=== PATIENT | female | born 1995 | race Hispanic/Latino ===

== ENCOUNTER 2016-06-28 01:33 | Outpatient (CLI) | payer BC, MEDICAID ==
[2016-06-28 01:49] VITALS: BP 123/83
[2016-06-28] MEDS ORDERED: VISTARIL PO ONE (03:01)
== END 2016-06-28 03:11 | disposition home or self-care (01) ==
LOC: TRG 01:33
PROVIDERS: ATTEND Obstetrics & Gynecology
DX: O47.1 False labor at or after 37 completed weeks of gestation (principal); Z3A.37 37 weeks gestation of pregnancy
CPT/HCPCS: Q0177

== ENCOUNTER 2016-07-08 05:45 | Outpatient (CLI) | payer BC, MEDICAID ==
[2016-07-08 06:00] VITALS: BP 123/81
[2016-07-08] MEDS ORDERED: VISTARIL PO ONE (10:30)
== END 2016-07-08 10:18 | disposition home or self-care (01) ==
LOC: TRG 05:45
PROVIDERS: ATTEND Obstetrics & Gynecology
DX: O26.893 Other specified pregnancy related conditions, third trimester (principal); O62.9 Abnormality of forces of labor, unspecified; M54.9 Dorsalgia, unspecified; R11.0 Nausea; Z3A.38 38 weeks gestation of pregnancy
CPT/HCPCS: 59025; Q0177

== ENCOUNTER 2016-07-10 18:06 | Inpatient (IN) | payer BC, MEDICAID ==
[2016-07-10 18:50] LABS: Basophils % (Auto) 0.2 % (0.0-1.8); Eosinophils % (Auto) 1.2 % (0.0-4.3); Hematocrit 31.6 % (30.3-42.9); Hemoglobin 10.5 gm/dl (10.1-14.3); Mean Corpuscular HGB Conc 33 % (30-34); Mean Corpuscular Hemoglobin 29 pg (28-32); Mean Corpuscular Volume 87 fl (79-97); Platelet Count 226 K/mm3 (140-440); Red Blood Count 3.62 M/mm3 (3.65-5.03); White Blood Count 17.6 K/mm3 (4.5-11.0)
[2016-07-10] MEDS ORDERED: NUBAIN IV PRN (19:22)
[2016-07-10] MEDS ORDERED: PHENERGAN PR PRN (19:22)
[2016-07-10] MEDS ORDERED: SUBLIMAZE IV PRN (19:22)
[2016-07-10] MEDS ORDERED: BRETHINE IVP PRN (19:22)
[2016-07-10] MEDS ORDERED: PHENERGAN PO PRN (19:22)
[2016-07-10] MEDS ORDERED: NARCAN 0.4 MG/1 ML IV PRN (19:22)
[2016-07-10] MEDS ORDERED: XYLOCAINE 2% INFILTRATI ONE (19:22)
[2016-07-10] MEDS ORDERED: BRETHINE SUB-Q PRN (19:22)
[2016-07-10] MEDS ORDERED: ePHEDrine SULFATE IV PRN ×2 (19:22→21:33)
[2016-07-10] MEDS ORDERED: ZOFRAN IV PRN (19:22)
[2016-07-10] MEDS ORDERED: MINERAL OIL PO PRN (19:22)
[2016-07-10] MEDS ORDERED: LACTATED RINGERS 1,000 ML IV SCH ×2 (19:25→20:00)
[2016-07-10] MEDS: STADOL IV PRN (19:32)
[2016-07-10] MEDS ORDERED: PITOCin/NS 20 UNIT/1000ML DRIP 20 UNITS/1,000 ML BAG IV SCH (20:00)
[2016-07-10] MEDS ORDERED: NARCAN 2 MG/2 ML IV PRN (21:09)
--- NOTE | 2016-07-10 21:09 | Anesthesia Consultation ---
Anesthesia Consult and Med Hx Date of service: 07/10/16 - Airway Anesthetic Teeth Evaluation: Good ROM Head & Neck: Adequate Mental/Hyoid Distance: Adequate Mallampati Class: Class II Intubation Access Assessment: Probably Good - Pulmonary Exam CTA: Yes - Cardiac Exam Cardiac Exam: RRR - Pre-Operative Health Status ASA Pre-Surgery Classification: ASA2 Proposed Anesthetic Plan: Epidural - Pulmonary Hx Asthma: No COPD: No Hx Pneumonia: No - Cardiovascular System Hx Hypertension: No - Central Nervous System Hx Seizures: No Hx Psychiatric Problems: No - Endocrine Hx Renal Disease: No Hx End Stage Renal Disease: No Hx Hypothyroidism: No Hx Hyperthyroidism: No - Hematic Hx Anemia: No Hx Sickle Cell Disease: No - Other Systems Hx Alcohol Use: No
[2016-07-10] MEDS: fentaNYL-BUPIV 2 MCG/ML-0.125% 200 MCG/100 ML BAG EPIDURAL SCH (21:48)
--- NOTE | 2016-07-10 22:03 | History and Physical Report ---
History of Present Illness Date of examination: 07/10/16 Date of admission: 07/10/16 18:39 Chief complaint: Labor History of present illness: Past History : 1 Term Births: 0 Premature Births: 0 Living Children: 0 Para: 0 Mult. Births: 0 Prev : 0 Prev. attempt? 0 Aborta: 0 Elect. 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 % Family History Risk Factors: Family History of PA in females < 65 years old: no Family History of PA in males < 55 years old: no Dietary Counseling: pn yes Past Medical History: Negative Past Medical History Past Surgical History: Appendectomy Tonsillectomy Past Medical History Surgery (Non-emergency doctor): Appendectomy Tonsillectomy Abnormal PAP: negative JIGNESH Exposure: negative Infertility: negative Uterine Anomaly: negative Uterine Surgery (not C/S): negative Other Gynecologic Problems: negative Infection History Hx of STD: none HIV Risk Eval: low risk Hepatitis B Risk Eval: low risk Personal hx. of genital herpes: no Partner hx. of genital herpes: no Rash, Viral, or Febrile illness since last LMP? no Varicella/Chicken Pox Status: Previous Disease Genetic History Congenital Heart Defect: Mom: no Dad: no Car Disease: Mom: no Dad: no Thalassemia Mom: no Dad: no Neural Tube Defect Mom: no Dad: no Down's Syndrome Mom: no Dad: no Kunal-Sachs Mom: no Dad: no Sickle Cell Disease/Trait Mom: no Dad: no Hemophilia Mom: no Dad: no Muscular Dystrophy Mom: no Dad: no Cystic Fibrosis Mom: no Dad: no [place] Chorea Mom: no Dad: no Mental Retardation Mom: no Dad: no Fragile X Mom: no Dad: no Other Genetic/Chromosomal Disorder Mom: no Dad: no Child w/other defect Mom: no Dad: no Enviromental Exposures Xray Exposure: no Medication, drug, or alcohol use since LMP: no Chemical/Other Exposure: no Exposure to Cat Liter: no Hx of Parvovirus (Fifth Disease): no Occupational Exposure to Children: none Current Allergies (reviewed today): SULFA (Critical) Past History - Obstetrical History Expected Date of Delivery: 07/19/16 Actual Gestation: 38 Week(s) 5 Day(s) : 1 Medications and Allergies Allergies Allergy/AdvReac Type Severity Reaction Status Date / Time Latex, Natural Rubber Allergy Itching Verified 07/08/16 05:48 sulfur dioxide Allergy Swelling Verified 06/28/16 01:50 Active Meds: Active Medications Butorphanol Tartrate (Stadol) 2 mg IV Q2H PRN PRN Reason: Pain , Severe (7-10) Last Admin: 07/10/16 19:32 Dose: 2 mg Fentanyl (Sublimaze) 100 mcg IV Q2H PRN PRN Reason: Labor Pain Lactated Ringer's (Lactated Ringers) 1,000 mls @ 125 mls/hr IV DIRECT JENNYFER Oxytocin/Sodium Chloride (Pitocin/Ns 20 Unit/1000ml Drip) 20 units in 1,000 mls @ 125 mls/hr IV DIRECT JENNYFER Fentanyl/Bupivacaine/Sodium Chlor (Fentanyl-Bupiv 2 Mcg/Ml-0.125%) 200 mcg in 100 mls @ 12 mls/hr EPIDURAL TITR JENNYFER PRN Reason: Protocol Last Admin: 07/10/16 21:48 Dose: 12 mls/hr Mineral Oil (Mineral Oil) 30 ml PO QHS PRN PRN Reason: Constipation Nalbuphine HCl (Nubain) 10 mg IV Q2H PRN PRN Reason: Pain, Moderate (4-6) Naloxone HCl (Narcan 0.4 Mg/1 Ml) 0.1 mg IV Q2MIN PRN PRN Reason: Res Rate </= 8 or 02 SAT < 92% Ondansetron HCl (Zofran) 4 mg IV Q8H PRN PRN Reason: Nausea And Vomiting Promethazine HCl (Phenergan) 25 mg PO Q6H PRN PRN Reason: Nausea And Vomiting Promethazine HCl (Phenergan) 25 mg MO Q6H PRN PRN Reason: N/V if unable to take po Review of Systems All systems: negative Genitourinary: contractions - Vital Signs Vital signs: Vital Signs Pulse BP 106 H 126/79 07/10/16 18:17 07/10/16 18:17 Temp Pulse Resp BP Pulse Ox 98.7 F 73 18 115/63 100 07/10/16 18:20 07/10/16 21:56 07/10/16 18:20 07/10/16 21:47 07/10/16 21:56 - Physical Exam Breasts: Positive: deferred Lungs: Positive: Normal air movement Abdomen: Positive: normal appearance Genitourinary (Female): Positive: normal external genitalia, normal perenium - Obstetrical FHR: category 1 Uterine Contraction Monitor Mode: External Cervical Dilatation: 5 (per RN) Uterine Contraction Pattern: Regular Results Result Diagrams: 07/10/16 18:30 Abnormal lab results 07/10/16 Range/Units 18:30 WBC 17.6 H (4.5-11.0) K/mm3 RBC 3.62 L (3.65-5.03) M/mm3 [place] % (Auto) 7.8 H (0.0-7.3) % [place] # 1.4 H (0.0-0.8) K/mm3 Seg Neutrophils % 75.6 H (40.0-70.0) % Seg Neutrophils # 13.3 H (1.8-7.7) K/mm3 All other labs normal. Assessment and Plan - Patient Problems (1) 38 weeks gestation of Current Visit: Yes Status: Acute (2) Active labor at term Current Visit: Yes Status: Acute
[2016-07-11] MEDS: PITOCin/NS 30 UNIT/500ML 30 UNITS/500 ML BAG IV SCH ×2 (00:21→07:46)
[2016-07-11] MEDS: STADOL IV PRN (00:30)
[2016-07-11] MEDS: fentaNYL-BUPIV 2 MCG/ML-0.125% 200 MCG/100 ML BAG EPIDURAL SCH (05:43)
--- NOTE | 2016-07-11 06:42 | Progress Note ---
Assessment and Plan - Patient Problems (1) 38 weeks gestation of Current Visit: Yes Status: Acute (2) Active labor at term Current Visit: Yes Status: Acute Plan to address problem: No cervical change after epidural,order for pitocin given for 2mu/min [id number] at 2300 however not able to be appropriately increased according to orders. Now only at 14mu/min. After verbal consent obtained, AROM, clear fluid, and IUPC placed without difficulty. Will continue pitocin. Subjective - Subjective Date of service: 07/11/16 Principal diagnosis: Prolonged active labor Interval history: Past History : 1 Term Births: 0 Premature Births: 0 Living Children: 0 Para: 0 Mult. Births: 0 Prev : 0 Prev. attempt? 0 Aborta: 0 Elect. 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 of genital herpes: no Partner hx. of genital herpes: no Rash, Viral, or Febrile illness since last LMP? no Varicella/Chicken Pox Status: Previous Disease Genetic History Congenital Heart Defect: Mom: no Dad: no Car Disease: Mom: no Dad: no Thalassemia Mom: no Dad: no Neural Tube Defect Mom: no Dad: no Down's Syndrome Mom: no Dad: no Kunal-Sachs Mom: no Dad: no Sickle Cell Disease/Trait Mom: no Dad: no Hemophilia Mom: no Dad: no Muscular Dystrophy Mom: no Dad: no Cystic Fibrosis Mom: no Dad: no [employer] Chorea Mom: no Dad: no Mental Retardation Mom: no Dad: no Fragile X Mom: no Dad: no Other Genetic/Chromosomal Disorder Mom: no Dad: no Child w/other defect Mom: no Dad: no Enviromental Exposures Xray Exposure: no Medication, drug, or alcohol use since LMP: no Chemical/Other Exposure: no Exposure to Cat Liter: no Hx of Parvovirus (Fifth Disease): no Occupational Exposure to Children: none Current Allergies (reviewed today): SULFA (Critical) Patient reports: movement normal, contractions, no loss of fluid, no vaginal bleeding Objective - Vital Signs Vital Signs: Vital Signs - 12hr 07/10/16 07/10/16 07/10/16 19:21 19:26 19:31 Pulse Rate 95 H 96 H 102 H Respiratory Rate Blood Pressure O2 Sat by Pulse 98 98 97 Oximetry 07/10/16 07/10/16 07/10/16 19:36 19:41 19:46 Pulse Rate 80 86 80 Respiratory Rate Blood Pressure O2 Sat by Pulse 97 97 97 Oximetry 07/10/16 07/10/16 07/10/16 19:51 19:56 20:01 Pulse Rate 80 79 77 Respiratory Rate Blood Pressure O2 Sat by Pulse 95 95 97 Oximetry 07/10/16 07/10/16 07/10/16 20:06 20:11 20:16 Pulse Rate 74 82 81 Respiratory Rate Blood Pressure O2 Sat by Pulse 96 97 98 Oximetry 07/10/16 07/10/16 07/10/16 20:21 20:26 20:31 Pulse Rate 86 84 78 Respiratory Rate Blood Pressure O2 Sat by Pulse 99 99 100 Oximetry 07/10/16 07/10/16 07/10/16 20:36 20:41 20:46 Pulse Rate 83 85 83 Respiratory Rate Blood Pressure O2 Sat by Pulse 99 100 100 Oximetry 07/10/16 07/10/16 07/10/16 20:51 20:56 21:01 Pulse Rate 79 89 80 Respiratory Rate Blood Pressure O2 Sat by Pulse 100 100 100 Oximetry 07/10/16 07/10/16 07/10/16 21:06 21:08 21:11 Pulse Rate 77 108 H 87 Respiratory Rate Blood Pressure O2 Sat by Pulse 100 82 L 100 Oximetry 07/10/16 07/10/16 07/10/16 21:16 21:21 21:22 Pulse Rate 73 89 92 H Respiratory Rate Blood Pressure 109/59 O2 Sat by Pulse 100 99 Oximetry 07/10/16 07/10/16 07/10/16 21:24 21:26 21:28 Pulse Rate 88 76 84 Respiratory Rate Blood Pressure 107/58 110/60 109/59 O2 Sat by Pulse 100 Oximetry 07/10/16 07/10/16 07/10/16 21:30 21:31 21:32 Pulse Rate 79 67 72 Respiratory Rate Blood Pressure 105/58 105/55 O2 Sat by Pulse 100 Oximetry 07/10/16 07/10/16 07/10/16 21:34 21:36 21:38 Pulse Rate 83 75 77 Respiratory Rate Blood Pressure 104/56 108/58 109/58 O2 Sat by Pulse 100 Oximetry 07/10/16 07/10/16 07/10/16 21:40 21:41 21:42 Pulse Rate 72 89 89 Respiratory Rate Blood Pressure 112/58 108/56 O2 Sat by Pulse 100 Oximetry 07/10/16 07/10/16 07/10/16 21:44 21:46 21:47 Pulse Rate 73 71 67 Respiratory Rate Blood Pressure 113/59 112/58 115/63 O2 Sat by Pulse 100 Oximetry 07/10/16 07/10/16 07/10/16 21:51 21:56 22:01 Pulse Rate 76 73 87 Respiratory Rate Blood Pressure O2 Sat by Pulse 100 100 100 Oximetry 07/10/16 07/10/16 07/10/16 22:04 22:06 22:11 Pulse Rate 84 80 86 Respiratory Rate Blood Pressure 127/77 O2 Sat by Pulse 100 100 Oximetry 07/10/16 07/10/16 07/10/16 22:16 22:19 22:21 Pulse Rate 88 92 H 97 H Respiratory Rate Blood Pressure 132/80 O2 Sat by Pulse 100 100 Oximetry 07/10/16 07/10/16 07/10/16 22:26 22:32 22:34 Pulse Rate 83 77 78 Respiratory Rate Blood Pressure 125/77 O2 Sat by Pulse 100 100 Oximetry 07/10/16 07/10/16 07/10/16 22:37 22:41 22:48 Pulse Rate 78 80 82 Respiratory Rate Blood Pressure 130/75 O2 Sat by Pulse 100 100 Oximetry 07/10/16 07/10/16 07/10/16 22:51 22:52 22:56 Pulse Rate 96 H 86 Respiratory Rate Blood Pressure O2 Sat by Pulse 84 84 99 Oximetry 07/10/16 07/10/16 07/10/16 23:01 23:03 23:07 Pulse Rate 93 H 88 88 Respiratory Rate Blood Pressure 128/79 O2 Sat by Pulse 99 98 Oximetry 07/10/16 07/10/16 07/10/16 23:11 23:16 23:18 Pulse Rate 85 94 H 89 Respiratory Rate Blood Pressure 126/74 O2 Sat by Pulse 99 99 Oximetry 07/10/16 07/10/16 07/10/16 23:21 23:26 23:32 Pulse Rate 89 91 H 90 Respiratory Rate Blood Pressure 126/73 O2 Sat by Pulse 99 98 99 Oximetry 07/10/16 07/10/16 07/10/16 23:37 23:41 23:47 Pulse Rate 95 H 100 H 94 H Respiratory Rate Blood Pressure O2 Sat by Pulse 99 98 98 Oximetry 07/10/16 07/10/16 07/10/16 23:48 23:51 23:56 Pulse Rate 89 103 H 104 H Respiratory Rate Blood Pressure 134/77 O2 Sat by Pulse 99 99 Oximetry 07/11/16 07/11/16 07/11/16 00:01 00:03 00:07 Pulse Rate 108 H 110 H 101 H Respiratory Rate Blood Pressure 122/73 O2 Sat by Pulse 98 98 Oximetry 07/11/16 07/11/16 07/11/16 00:12 00:16 00:17 Pulse Rate 108 H 99 H 100 H Respiratory Rate Blood Pressure 121/71 O2 Sat by Pulse 98 99 Oximetry 07/11/16 07/11/16 07/11/16 00:22 00:26 00:30 Pulse Rate 103 H 101 H Respiratory 20 Rate Blood Pressure O2 Sat by Pulse 97 99 Oximetry 07/11/16 07/11/16 07/11/16 00:32 00:33 00:36 Pulse Rate 93 H 98 H 103 H Respiratory Rate Blood Pressure 124/72 O2 Sat by Pulse 96 95 Oximetry 07/11/16 07/11/16 07/11/16 00:37 00:42 00:46 Pulse Rate 92 H 101 H 98 H Respiratory Rate Blood Pressure O2 Sat by Pulse 94 95 96 Oximetry 07/11/16 07/11/16 07/11/16 00:48 00:51 00:57 Pulse Rate 95 H 101 H 103 H Respiratory Rate Blood Pressure 126/67 O2 Sat by Pulse 95 96 Oximetry 07/11/16 07/11/16 07/11/16 01:02 01:03 01:07 Pulse Rate 98 H 97 H 97 H Respiratory Rate Blood Pressure 125/74 O2 Sat by Pulse 96 97 Oximetry 07/11/16 07/11/16 07/11/16 01:12 01:17 01:18 Pulse Rate 101 H 98 H 96 H Respiratory Rate Blood Pressure 129/75 O2 Sat by Pulse 95 96 Oximetry 07/11/16 07/11/16 07/11/16 01:22 01:27 01:32 Pulse Rate 102 H 91 H 100 H Respiratory Rate Blood Pressure O2 Sat by Pulse 98 97 99 Oximetry 07/11/16 07/11/16 07/11/16 01:34 01:37 01:42 Pulse Rate 110 H 109 H 93 H Respiratory Rate Blood Pressure 145/68 O2 Sat by Pulse 99 99 Oximetry 07/11/16 07/11/16 07/11/16 01:47 01:49 01:52 Pulse Rate 94 H 89 113 H Respiratory Rate Blood Pressure 137/85 O2 Sat by Pulse 98 98 Oximetry 07/11/16 07/11/16 07/11/16 01:57 02:02 02:04 Pulse Rate 90 95 H 91 H Respiratory Rate Blood Pressure 119/77 O2 Sat by Pulse 99 99 Oximetry 07/11/16 07/11/16 07/11/16 02:07 02:12 02:17 Pulse Rate 96 H 95 H 91 H Respiratory Rate Blood Pressure 125/79 O2 Sat by Pulse 97 98 Oximetry 07/11/16 07/11/16 07/11/16 02:32 02:39 02:44 Pulse Rate 90 89 89 Respiratory Rate Blood Pressure 130/85 O2 Sat by Pulse 99 99 Oximetry 07/11/16 07/11/16 07/11/16 02:49 02:54 02:59 Pulse Rate 87 90 87 Respiratory Rate Blood Pressure 159/74 O2 Sat by Pulse 99 100 99 Oximetry 07/11/16 07/11/16 07/11/16 03:03 03:04 03:09 Pulse Rate 81 82 100 H Respiratory Rate Blood Pressure 137/81 O2 Sat by Pulse 99 99 Oximetry 07/11/16 07/11/16 07/11/16 03:14 03:18 03:19 Pulse Rate 93 H 88 Respiratory Rate Blood Pressure 143/87 O2 Sat by Pulse 98 97 Oximetry 07/11/16 07/11/16 07/11/16 03:24 03:28 03:29 Pulse Rate 94 H 90 90 Respiratory Rate Blood Pressure O2 Sat by Pulse 96 94 94 Oximetry 07/11/16 07/11/16 07/11/16 03:33 03:34 03:39 Pulse Rate 105 H 86 98 H Respiratory Rate Blood Pressure 132/66 O2 Sat by Pulse 93 91 Oximetry 07/11/16 07/11/16 07/11/16 03:44 03:49 03:54 Pulse Rate 95 H 87 94 H Respiratory Rate Blood Pressure 130/76 O2 Sat by Pulse 91 93 97 Oximetry 07/11/16 07/11/16 07/11/16 03:59 04:03 04:04 Pulse Rate 92 H 97 H 86 Respiratory Rate Blood Pressure 122/78 O2 Sat by Pulse 96 97 Oximetry 07/11/16 07/11/16 07/11/16 04:09 04:14 04:17 Pulse Rate 91 H 92 H 95 H Respiratory Rate Blood Pressure 121/75 O2 Sat by Pulse 96 96 Oximetry 07/11/16 07/11/16 07/11/16 04:19 04:23 04:24 Pulse Rate 93 H 93 H 91 H Respiratory Rate Blood Pressure O2 Sat by Pulse 97 94 95 Oximetry 07/11/16 07/11/16 07/11/16 04:29 04:33 04:34 Pulse Rate 90 86 86 Respiratory Rate Blood Pressure 115/66 O2 Sat by Pulse 97 96 Oximetry 07/11/16 07/11/16 07/11/16 04:39 04:44 04:48 Pulse Rate 91 H 91 H 81 Respiratory Rate Blood Pressure 118/69 O2 Sat by Pulse 97 99 Oximetry 07/11/16 07/11/16 07/11/16 04:49 04:54 04:59 Pulse Rate 87 88 88 Respiratory Rate Blood Pressure O2 Sat by Pulse 98 98 97 Oximetry 07/11/16 07/11/16 07/11/16 05:03 05:09 05:18 Pulse Rate 102 H 97 H 85 Respiratory Rate Blood Pressure 115/67 134/79 O2 Sat by Pulse 97 99 99 Oximetry 07/11/16 07/11/16 07/11/16 05:23 05:28 05:32 Pulse Rate 86 92 H 93 H Respiratory Rate Blood Pressure 130/79 O2 Sat by Pulse 99 97 Oximetry 07/11/16 07/11/16 07/11/16 05:33 05:38 05:43 Pulse Rate 93 H 92 H 97 H Respiratory Rate Blood Pressure O2 Sat by Pulse 99 98 97 Oximetry 07/11/16 07/11/16 07/11/16 05:48 05:49 05:53 Pulse Rate 86 89 95 H Respiratory Rate Blood Pressure 135/76 O2 Sat by Pulse 100 99 Oximetry 07/11/16 07/11/16 07/11/16 05:58 06:03 06:08 Pulse Rate 91 H 93 H 89 Respiratory Rate Blood Pressure 130/75 O2 Sat by Pulse 99 99 98 Oximetry 07/11/16 07/11/16 07/11/16 06:13 06:17 06:18 Pulse Rate 95 H 96 H 96 H Respiratory Rate Blood Pressure 133/76 O2 Sat by Pulse 97 97 Oximetry 07/11/16 07/11/16 07/11/16 06:23 06:28 06:32 Pulse Rate 105 H 90 100 H Respiratory Rate Blood Pressure O2 Sat by Pulse 95 98 99 Oximetry 07/11/16 07/11/16 06:33 06:38 Pulse Rate 101 H 93 H Respiratory Rate Blood Pressure 123/86 O2 Sat by Pulse 98 Oximetry - Exam Breasts: deferred Lungs: Normal air movement Vulva: both: normal FHR: category 1 Uterine Contraction Monitor Mode: External Cervical Dilatation: 6 Cervical Effacement Percentage: 80 station: -1 Uterine Contraction Frequency (min): 2-3 Uterine Contraction Pattern: Regular Extremities: normal - Labs Labs: Abnormal Labs 07/10/16 18:30 WBC 17.6 H RBC 3.62 L [place] % (Auto) 7.8 H [place] # 1.4 H Seg Neutrophils % 75.6 H Seg Neutrophils # 13.3 H Laboratory Results - last 24 hr 07/10/16 07/10/16 18:30 18:30 WBC 17.6 H RBC 3.62 L Hgb 10.5 Hct 31.6 MCV 87 MCH 29 MCHC 33 RDW 15.0 Plt Count 226 Lymph % (Auto) 15.2 [place] % (Auto) 7.8 H Eos % (Auto) 1.2 Baso % (Auto) 0.2 Lymph # 2.7 [place] # 1.4 H Eos # 0.2 Baso # 0.0 Seg Neutrophils % 75.6 H Seg Neutrophils # 13.3 H Blood Type O POSITIVE Antibody Screen TNR SATYA Antibody Screen Negative
--- NOTE | 2016-07-11 09:09 | Progress Note ---
Assessment and Plan - Patient Problems (1) 38 weeks gestation of Current Visit: Yes Status: Acute (2) Active labor at term Current Visit: Yes Status: Acute Subjective - Subjective Date of service: 07/11/16 Patient reports: movement normal, contractions, no loss of fluid, no vaginal bleeding Objective - Vital Signs Vital Signs: Vital Signs - 12hr 07/10/16 07/10/16 07/10/16 21:08 21:11 21:16 Pulse Rate 108 H 87 73 Respiratory Rate Blood Pressure O2 Sat by Pulse 82 L 100 100 Oximetry 07/10/16 07/10/16 07/10/16 21:21 21:22 21:24 Pulse Rate 89 92 H 88 Respiratory Rate Blood Pressure 109/59 107/58 O2 Sat by Pulse 99 Oximetry 07/10/16 07/10/16 07/10/16 21:26 21:28 21:30 Pulse Rate 76 84 79 Respiratory Rate Blood Pressure 110/60 109/59 105/58 O2 Sat by Pulse 100 Oximetry 07/10/16 07/10/16 07/10/16 21:31 21:32 21:34 Pulse Rate 67 72 83 Respiratory Rate Blood Pressure 105/55 104/56 O2 Sat by Pulse 100 Oximetry 07/10/16 07/10/16 07/10/16 21:36 21:38 21:40 Pulse Rate 75 77 72 Respiratory Rate Blood Pressure 108/58 109/58 112/58 O2 Sat by Pulse 100 Oximetry 07/10/16 07/10/16 07/10/16 21:41 21:42 21:44 Pulse Rate 89 89 73 Respiratory Rate Blood Pressure 108/56 113/59 O2 Sat by Pulse 100 Oximetry 07/10/16 07/10/16 07/10/16 21:46 21:47 21:51 Pulse Rate 71 67 76 Respiratory Rate Blood Pressure 112/58 115/63 O2 Sat by Pulse 100 100 Oximetry 07/10/16 07/10/16 07/10/16 21:56 22:01 22:04 Pulse Rate 73 87 84 Respiratory Rate Blood Pressure 127/77 O2 Sat by Pulse 100 100 Oximetry 07/10/16 07/10/16 07/10/16 22:06 22:11 22:16 Pulse Rate 80 86 88 Respiratory Rate Blood Pressure O2 Sat by Pulse 100 100 100 Oximetry 07/10/16 07/10/16 07/10/16 22:19 22:21 22:26 Pulse Rate 92 H 97 H 83 Respiratory Rate Blood Pressure 132/80 O2 Sat by Pulse 100 100 Oximetry 07/10/16 07/10/16 07/10/16 22:32 22:34 22:37 Pulse Rate 77 78 78 Respiratory Rate Blood Pressure 125/77 O2 Sat by Pulse 100 100 Oximetry 07/10/16 07/10/16 07/10/16 22:41 22:48 22:51 Pulse Rate 80 82 Respiratory Rate Blood Pressure 130/75 O2 Sat by Pulse 100 84 Oximetry 07/10/16 07/10/16 07/10/16 22:52 22:56 23:01 Pulse Rate 96 H 86 93 H Respiratory Rate Blood Pressure O2 Sat by Pulse 84 99 99 Oximetry 07/10/16 07/10/16 07/10/16 23:03 23:07 23:11 Pulse Rate 88 88 85 Respiratory Rate Blood Pressure 128/79 O2 Sat by Pulse 98 99 Oximetry 07/10/16 07/10/16 07/10/16 23:16 23:18 23:21 Pulse Rate 94 H 89 89 Respiratory Rate Blood Pressure 126/74 O2 Sat by Pulse 99 99 Oximetry 07/10/16 07/10/16 07/10/16 23:26 23:32 23:37 Pulse Rate 91 H 90 95 H Respiratory Rate Blood Pressure 126/73 O2 Sat by Pulse 98 99 99 Oximetry 07/10/16 07/10/16 07/10/16 23:41 23:47 23:48 Pulse Rate 100 H 94 H 89 Respiratory Rate Blood Pressure 134/77 O2 Sat by Pulse 98 98 Oximetry 07/10/16 07/10/16 07/11/16 23:51 23:56 00:01 Pulse Rate 103 H 104 H 108 H Respiratory Rate Blood Pressure O2 Sat by Pulse 99 99 98 Oximetry 07/11/16 07/11/16 07/11/16 00:03 00:07 00:12 Pulse Rate 110 H 101 H 108 H Respiratory Rate Blood Pressure 122/73 O2 Sat by Pulse 98 98 Oximetry 07/11/16 07/11/16 07/11/16 00:16 00:17 00:22 Pulse Rate 99 H 100 H 103 H Respiratory Rate Blood Pressure 121/71 O2 Sat by Pulse 99 97 Oximetry 07/11/16 07/11/16 07/11/16 00:26 00:30 00:32 Pulse Rate 101 H 93 H Respiratory 20 Rate Blood Pressure O2 Sat by Pulse 99 96 Oximetry 07/11/16 07/11/16 07/11/16 00:33 00:36 00:37 Pulse Rate 98 H 103 H 92 H Respiratory Rate Blood Pressure 124/72 O2 Sat by Pulse 95 94 Oximetry 07/11/16 07/11/16 07/11/16 00:42 00:46 00:48 Pulse Rate 101 H 98 H 95 H Respiratory Rate Blood Pressure 126/67 O2 Sat by Pulse 95 96 Oximetry 07/11/16 07/11/16 07/11/16 00:51 00:57 01:02 Pulse Rate 101 H 103 H 98 H Respiratory Rate Blood Pressure O2 Sat by Pulse 95 96 96 Oximetry 07/11/16 07/11/16 07/11/16 01:03 01:07 01:12 Pulse Rate 97 H 97 H 101 H Respiratory Rate Blood Pressure 125/74 O2 Sat by Pulse 97 95 Oximetry 07/11/16 07/11/16 07/11/16 01:17 01:18 01:22 Pulse Rate 98 H 96 H 102 H Respiratory Rate Blood Pressure 129/75 O2 Sat by Pulse 96 98 Oximetry 07/11/16 07/11/16 07/11/16 01:27 01:32 01:34 Pulse Rate 91 H 100 H 110 H Respiratory Rate Blood Pressure 145/68 O2 Sat by Pulse 97 99 Oximetry 07/11/16 07/11/16 07/11/16 01:37 01:42 01:47 Pulse Rate 109 H 93 H 94 H Respiratory Rate Blood Pressure O2 Sat by Pulse 99 99 98 Oximetry 07/11/16 07/11/16 07/11/16 01:49 01:52 01:57 Pulse Rate 89 113 H 90 Respiratory Rate Blood Pressure 137/85 O2 Sat by Pulse 98 99 Oximetry 07/11/16 07/11/16 07/11/16 02:02 02:04 02:07 Pulse Rate 95 H 91 H 96 H Respiratory Rate Blood Pressure 119/77 O2 Sat by Pulse 99 97 Oximetry 07/11/16 07/11/16 07/11/16 02:12 02:17 02:32 Pulse Rate 95 H 91 H 90 Respiratory Rate Blood Pressure 125/79 130/85 O2 Sat by Pulse 98 Oximetry 07/11/16 07/11/1617 02:39 02:44 02:49 Pulse Rate 89 89 87 Respiratory Rate Blood Pressure 159/74 O2 Sat by Pulse 99 99 99 Oximetry 07/11/16 07/11/16 07/11/16 02:54 02:59 03:03 Pulse Rate 90 87 81 Respiratory Rate Blood Pressure 137/81 O2 Sat by Pulse 100 99 Oximetry 07/11/16 07/11/16 07/11/16 03:04 03:09 03:14 Pulse Rate 82 100 H 93 H Respiratory Rate Blood Pressure O2 Sat by Pulse 99 99 98 Oximetry 07/11/16 07/11/16 07/11/16 03:18 03:19 03:24 Pulse Rate 88 94 H Respiratory Rate Blood Pressure 143/87 O2 Sat by Pulse 97 96 Oximetry 07/11/16 07/11/16 07/11/16 03:28 03:29 03:33 Pulse Rate 90 90 105 H Respiratory Rate Blood Pressure 132/66 O2 Sat by Pulse 94 94 Oximetry 07/11/16 07/11/16 07/11/16 03:34 03:39 03:44 Pulse Rate 86 98 H 95 H Respiratory Rate Blood Pressure O2 Sat by Pulse 93 91 91 Oximetry 07/11/16 07/11/16 07/11/16 03:49 03:54 03:59 Pulse Rate 87 94 H 92 H Respiratory Rate Blood Pressure 130/76 O2 Sat by Pulse 93 97 96 Oximetry 07/11/16 07/11/16 07/11/16 04:03 04:04 04:09 Pulse Rate 97 H 86 91 H Respiratory Rate Blood Pressure 122/78 O2 Sat by Pulse 97 96 Oximetry 07/11/16 07/11/16 07/11/16 04:14 04:17 04:19 Pulse Rate 92 H 95 H 93 H Respiratory Rate Blood Pressure 121/75 O2 Sat by Pulse 96 97 Oximetry 07/11/16 07/11/16 07/11/16 04:23 04:24 04:29 Pulse Rate 93 H 91 H 90 Respiratory Rate Blood Pressure O2 Sat by Pulse 94 95 97 Oximetry 07/11/16 07/11/16 07/11/16 04:33 04:34 04:39 Pulse Rate 86 86 91 H Respiratory Rate Blood Pressure 115/66 O2 Sat by Pulse 96 97 Oximetry 07/11/16 07/11/16 07/11/16 04:44 04:48 04:49 Pulse Rate 91 H 81 87 Respiratory Rate Blood Pressure 118/69 O2 Sat by Pulse 99 98 Oximetry 07/11/16 07/11/16 07/11/16 04:54 04:59 05:03 Pulse Rate 88 88 102 H Respiratory Rate Blood Pressure 115/67 O2 Sat by Pulse 98 97 97 Oximetry 07/11/16 07/11/16 07/11/16 05:09 05:18 05:23 Pulse Rate 97 H 85 86 Respiratory Rate Blood Pressure 134/79 O2 Sat by Pulse 99 99 99 Oximetry 07/11/16 07/11/16 07/11/16 05:28 05:32 05:33 Pulse Rate 92 H 93 H 93 H Respiratory Rate Blood Pressure 130/79 O2 Sat by Pulse 97 99 Oximetry 07/11/16 07/11/16 07/11/16 05:38 05:43 05:48 Pulse Rate 92 H 97 H 86 Respiratory Rate Blood Pressure O2 Sat by Pulse 98 97 100 Oximetry 07/11/16 07/11/16 07/11/16 05:49 05:53 05:58 Pulse Rate 89 95 H 91 H Respiratory Rate Blood Pressure 135/76 O2 Sat by Pulse 99 99 Oximetry 07/11/16 07/11/16 07/11/16 06:03 06:08 06:13 Pulse Rate 93 H 89 95 H Respiratory Rate Blood Pressure 130/75 O2 Sat by Pulse 99 98 97 Oximetry 07/11/16 07/11/16 07/11/16 06:17 06:18 06:23 Pulse Rate 96 H 96 H 105 H Respiratory Rate Blood Pressure 133/76 O2 Sat by Pulse 97 95 Oximetry 07/11/16 07/11/16 07/11/16 06:28 06:32 06:33 Pulse Rate 90 100 H 101 H Respiratory Rate Blood Pressure 123/86 O2 Sat by Pulse 98 99 Oximetry 07/11/16 07/11/16 07/11/16 06:38 06:43 06:48 Pulse Rate 93 H 99 H 98 H Respiratory Rate Blood Pressure O2 Sat by Pulse 98 99 98 Oximetry 07/11/16 07/11/16 07/11/16 06:49 06:53 06:58 Pulse Rate 102 H 95 H 106 H Respiratory Rate Blood Pressure 137/86 O2 Sat by Pulse 98 99 Oximetry 07/11/16 07/11/1607/11/17 07:03 07:09 07:13 Pulse Rate 98 H 112 H 114 H Respiratory Rate Blood Pressure 133/82 120/72 O2 Sat by Pulse 97 98 Oximetry 07/11/16 07/11/16 07/11/16 07:14 07:15 07:17 Pulse Rate 114 H 105 H 112 H Respiratory Rate Blood Pressure 121/69 116/66 117/63 O2 Sat by Pulse 98 Oximetry 07/11/16 07/11/16 07/11/16 07:19 07:20 07:21 Pulse Rate 91 H 99 H 97 H Respiratory Rate Blood Pressure 112/62 114/69 O2 Sat by Pulse 94 Oximetry 07/11/16 07/11/16 07/11/16 07:25 07:27 07:29 Pulse Rate 78 80 103 H Respiratory Rate Blood Pressure 108/60 107/60 105/61 O2 Sat by Pulse 99 Oximetry 07/11/16 07/11/16 07/11/16 07:30 07:31 07:33 Pulse Rate 93 H 92 H 97 H Respiratory Rate Blood Pressure 111/63 113/64 O2 Sat by Pulse 99 Oximetry 07/11/16 07/11/16 07/11/16 07:35 07:37 07:39 Pulse Rate 88 86 93 H Respiratory Rate Blood Pressure 115/63 114/61 116/62 O2 Sat by Pulse 100 Oximetry 07/11/16 07/11/16 07/11/16 07:40 07:41 07:43 Pulse Rate 87 88 86 Respiratory Rate Blood Pressure 108/61 113/64 O2 Sat by Pulse 100 Oximetry 07/11/16 07/11/16 07/11/16 07:44 07:50 07:55 Pulse Rate 85 93 H 99 H Respiratory Rate Blood Pressure O2 Sat by Pulse 100 100 100 Oximetry 07/11/16 07/11/16 07/11/16 07:57 08:00 08:02 Pulse Rate 101 H 116 H 101 H Respiratory Rate Blood Pressure 85/49 O2 Sat by Pulse 91 99 Oximetry 07/11/16 07/11/16 07/11/16 08:04 08:05 08:10 Pulse Rate 93 H 98 H 93 H Respiratory Rate Blood Pressure 119/59 O2 Sat by Pulse 100 100 Oximetry 07/11/16 07/11/16 07/11/16 08:13 08:15 08:20 Pulse Rate 86 96 H 94 H Respiratory Rate Blood Pressure 119/62 O2 Sat by Pulse 100 100 Oximetry 07/11/16 07/11/16 07/11/16 08:25 08:29 08:30 Pulse Rate 95 H 82 91 H Respiratory Rate Blood Pressure 117/66 O2 Sat by Pulse 100 100 Oximetry 07/11/16 07/11/16 07/11/16 08:35 08:40 08:43 Pulse Rate 91 H 117 H 86 Respiratory Rate Blood Pressure 114/58 O2 Sat by Pulse 100 97 Oximetry 07/11/16 07/11/16 08:45 08:50 Pulse Rate 89 102 H Respiratory Rate Blood Pressure O2 Sat by Pulse 99 100 Oximetry - Exam Lungs: Normal air movement Abdomen: Present: normal appearance FHR: category 1 Uterine Contraction Monitor Mode: External Cervical Dilatation: 10 Cervical Effacement Percentage: 100 station: +3 Uterine Contraction Pattern: Regular - Labs Labs: Abnormal Labs 07/10/16 18:30 WBC 17.6 H RBC 3.62 L [place] % (Auto) 7.8 H [place] # 1.4 H Seg Neutrophils % 75.6 H Seg Neutrophils # 13.3 H Laboratory Results - last 24 hr 07/10/16 07/10/16 18:30 18:30 WBC 17.6 H RBC 3.62 L Hgb 10.5 Hct 31.6 MCV 87 MCH 29 MCHC 33 RDW 15.0 Plt Count 226 Lymph % (Auto) 15.2 [place] % (Auto) 7.8 H Eos % (Auto) 1.2 Baso % (Auto) 0.2 Lymph # 2.7 [place] # 1.4 H Eos # 0.2 Baso # 0.0 Seg Neutrophils % 75.6 H Seg Neutrophils # 13.3 H Blood Type O POSITIVE Antibody Screen TNR SATYA Antibody Screen Negative
[2016-07-11] MEDS ORDERED: XYLOCAINE 2% INFILTRATI ONE (09:32)
--- NOTE | 2016-07-11 10:07 | Procedure Note ---
OB Delivery Note - Delivery Date of Delivery: 07/11/16 Surgeon: SANCHEZ MILLER Estimated blood loss: 200cc - Vaginal Delivery presentation: vertex Delivery position: OA Intrapartum events: none Delivery induction: none Delivery augmentation: rupture of membranes, pitocin Delivery monitor: external FHT, external uterine, internal uterine Route of delivery: Delivery placenta: spontaneous (intact) Episiotomy: none Delivery laceration: other ((B) labial, repaired with 3-0 vicryl, vaginal 2nd repaored with 3-0 vicryl) Delivery repair: vicryl Anesthesia: local, intravenous, epidural - Infant A at 1 minute: 8 at 5 minutes: 9 Infant Gender: Female (7-1)
[2016-07-11] MEDS ORDERED: TUCKS PAD TP ONE (12:00)
[2016-07-11] MEDS ORDERED: TYLENOL PO PRN (12:32)
[2016-07-11] MEDS ORDERED: LANSINOH TP PRN (12:32)
[2016-07-11] MEDS ORDERED: PHENERGAN PR PRN (12:32)
[2016-07-11] MEDS ORDERED: BENADRYL PO PRN (12:32)
[2016-07-11] MEDS ORDERED: DERMOPLAST TP PRN (12:32)
[2016-07-11] MEDS ORDERED: TUCKS PAD TP PRN (12:32)
[2016-07-11] MEDS ORDERED: PHENERGAN PO PRN (12:32)
[2016-07-11] MEDS ORDERED: MILK OF MAGNESIA PO PRN (12:32)
[2016-07-11] MEDS ORDERED: DULCOLAX PR PRN (12:32)
[2016-07-11] MEDS ORDERED: TORADOL IV PRN (12:32)
[2016-07-11] MEDS ORDERED: PERCOCET 5/325 PO PRN (12:32)
[2016-07-11] MEDS ORDERED: ZOFRAN IV PRN (12:32)
[2016-07-11] MEDS ORDERED: SODIUM CHLORIDE FLUSH SYRINGE 10 ML IV NR (12:32)
[2016-07-11] MEDS: MOTRIN PO SCH ×2 (13:02→18:09)
[2016-07-11 22:06] LABS: Hematocrit 24.4 % (30.3-42.9)
--- NOTE | 2016-07-12 08:36 | Progress Note ---
Assessment and Plan - Patient Problems (1) Spontaneous vaginal delivery Onset Date: ~07/11/16 Current Visit: Yes Status: Acute Plan to address problem: pt crying very concerned @ baby spitting up. RN present in room states there has only been one episode of vomiting. Baby sleeping soundly during my visit. Pt encouraged to rest, allow nurses to keep baby for a couple of hours, daddy willing and present in the room to help. VSS FF below umb Lochia small Perienum slight swelling intact H&H 10/16 drop r/t blood loss from delivery Pt is asymptomatic Doing well with exception of distress with baby care. P: continue pathway Start po iron. Encouraged to ASK for help Charge Nurse aware of pt and her concerns. Subjective - Subjective Date of service: 07/12/16 (pt very tearful; "I can't take care of my baby.") Principal diagnosis: Patient reports: appetite normal, voiding normally, pain well controlled, ambulating normally : doing well (baby did vomit X 1 after a bottle) Objective - Vital Signs Latest vital signs: Vital Signs Temp Pulse Pulse Resp BP BP Pulse Ox 07/12/16 00:18 98.3 F 87 18 111/56 07/11/16 21:05 98.9 F 105 H 20 120/71 07/11/16 16:20 98.6 F 20 118/60 07/11/16 12:00 98.7 F 87 20 118/59 07/11/16 11:22 89 97/50 07/11/16 11:07 91 H 108/56 07/11/16 10:52 86 106/56 07/11/16 10:37 88 105/58 07/11/16 10:22 95 H 111/56 07/11/16 10:07 96 H 106/58 07/11/16 09:52 100 H 103/54 07/11/16 09:38 111 H 113/52 07/11/16 08:50 102 H 100 07/11/16 08:45 89 99 07/11/16 08:43 86 114/58 07/11/16 08:40 117 H 97 07/11/16 08:35 91 H 100 07/11/16 08:30 91 H 100 07/11/16 08:29 82 117/66 Intake and Output 07/11/16 07/12/16 07/12/16 22:59 06:59 14:59 Intake Total 240 120 Output Total 900 Balance -660 120 Intake: Oral 240 Intake, Free Water 120 Output: Urine 900 Void 900 Other: Total, Intake Amount 240 Total, Output Amount 600 # Voids Void 1 1 - Exam Breasts: Present: normal Cardiovascular: Present: Regular rate Lungs: Present: Clear to auscultation Abdomen: Present: normal appearance, soft, normal bowel sounds Uterus: Present: normal, fundal height below umbilicus Extremities: Present: normal Deep Tendon Reflex Grade: Normal +2 Incision: Present: normal - Labs Labs: Abnormal lab results 07/11/16 Range/Units 21:56 Hgb 8.0 L (10.1-14.3) gm/dl Hct 24.4 L D (30.3-42.9) %
[2016-07-12] MEDS ORDERED: COLACE PO SCH (10:00)
[2016-07-12] MEDS: FEOSOL PO SCH (10:01)
[2016-07-12] MEDS ORDERED: BOOSTRIX IM ONE (10:03)
[2016-07-12] MEDS: MOTRIN PO SCH ×2 (13:33→18:06)
[2016-07-13] MEDS: FEOSOL PO SCH (00:12)
[2016-07-13] MEDS: MOTRIN PO SCH ×2 (00:12→07:45)
--- NOTE | 2016-07-13 07:56 | Discharge Summary ---
Providers - Providers Date of Admission: 07/10/16 18:39 Date of discharge: 07/13/16 (pt agrees with d/c ) Attending physician: SANCHEZ MILLER 07/11/16 12:32 Consult to Systems Design Engineer [CONS] Routine Reason For Exam: assistance with , SNS Primary care physician: NHAN MEAD Hospitalization Reason for admission: active labor Delivery: Episiotomy: none Laceration: 2nd degree Incision: normal, dry, intact complications: none Discharge diagnosis: IUP at term delivered [place] baby: female Hospital course: uncomplicated vaginal delivery Pt resting quietly in bed holding NB. No c/o voiced. Pt states she does feel better this AM Declines any intervention for PP blues. States she has a very good support system at home. VSS FF below umb Lochia small Perineum slight swelling intact. Pt asymptomatic for anemia. Doing well s/p vag delivery P: d/c home today Encouraged to call with any concerns for depression. Pt will f /u in 4 weeks for PP care. Condition at discharge: Good Disposition: DISCHARGED TO HOME OR SELFCARE - Discharge Diagnoses (1) Spontaneous vaginal delivery Status: Acute Comment: rto 4 weeks PP care Plan - Discharge Medications Prescriptions: Docusate Sodium [Colace] 100 mg PO BID PRN #60 capsule PRN Reason: Constipation Ferrous Sulfate [Feosol 325 MG tab] 325 mg PO BID #60 tablet Ibuprofen [Motrin 800 MG tab] 800 mg PO TID PRN #30 tablet PRN Reason: Pain - Provider Discharge Summary Activity: routine, no sex for 6 weeks, no heavy lifting 4 weeks, no strenuous exercise Diet: routine Instructions: routine Additional instructions: [] Smoking cessation referral if applicable(refer to patient education folder for contact #) [] Refer to [facility] Booklet Call your doctor immediately for: * Fever > 100.5 * Heavy vaginal bleeding ( >1 pad per hour) * Severe persistent headache * Shortness of breath * Reddened, hot, painful area to leg or breast * Drainage or odor from incision. * Keep incision clean and dry at all times and follow doctor's instructions regarding bathing/showering - Follow up plan Follow up: NHAN MEAD MD [Primary Care Provider] - 08/11/16 (Congratulations! Please call [phone] to schedule your exam in 4 weeks. Take medications as prescribed. Call with any concerns. )
[2016-07-13 15:43] VITALS: BP 112/54
== END 2016-07-13 14:40 | disposition home or self-care (01) | DRG 775 ==
LOC: TRG 18:06 → LD 18:39 → OB 07-11 12:29
PROVIDERS: ADMIT Obstetrics & Gynecology; ATTEND Obstetrics & Gynecology
PROC: 00HU33Z Insertion of Infusion Device into Spinal Canal, Percutaneous Approach (ICD-10-PCS; principal; 2016-07-11)
PROC: 10E0XZZ Delivery of Products of Conception, External Approach (ICD-10-PCS; principal; 2016-07-11)
PROC: 0KQM0ZZ Repair Perineum Muscle, Open Approach (ICD-10-PCS; principal; 2016-07-11)
PROC: 3E0S3CZ (ICD-10-PCS; principal; 2016-07-11)
DX: O70.1 Second degree perineal laceration during delivery (principal); O90.81 Anemia of the puerperium; Z3A.38 38 weeks gestation of pregnancy; Z37.0 Single live birth; Z88.2 Allergy status to sulfonamides; Z91.040 Latex allergy status
CPT/HCPCS: 36415; 85014; 85018; 85025; 86592; 86850; 86900; 86901; J0595; J2300; J2405; J2590; J7120; Q0169